=== PATIENT | male | born 1955 | race Caucasian/White ===

== ENCOUNTER 2017-04-27 11:48 | Emergency (ER) | payer BC ==
--- NOTE | ~2017-04-27 | CT4 ---
[facility] A Service of [facility] & [facility] RADIOLOGY TEXT RESULTS PATIENT: LIBBY BRYANT LOCATION: [facility] : 54 UNIT #: [id number] AGE: [address]: Shmuel Mitchell DO SEX: M ORDER DR: [id number] [facility] [address] [place], [place] [address] [id number] E MR#: [id number] Acc #: [id number] NAME: LIBBY BRYANT : 1955 SEX: M STUDY DATE/TIME: 04/27/2017 14:22 UNIT: [facility] ROOM: STUDY DESCRIPTION: CT Abd and Pelv Wo Cont Attending Physician: Shmuel Mitchell D.O. Ordering Physician: Shmuel Mitchell D.O. Primary Care Physician: Farshad Alvarez Jr., M.D. MEDICAL IMAGING REPORT This report is preliminary unless electronic signature is present EXAM CT abdomen and pelvis 04/27 INDICATIONS Elevated white blood cell count with difficulty urinating that started yesterday. TECHNIQUE Axial noncontrast images were obtained through the pelvis. Multiplanar reformats were obtained. No comparison. The CT exam was performed with one or more of the following radiation dose reduction techniques: automatic exposure control, adjustment of mA and/or kV according to patient size, and iterative reconstruction. FINDINGS Abdomen: Mild atelectasis or scarring noted in both lung bases. Gallbladder is normal. There is atherosclerotic disease, but there is no aortic aneurysm. No renal or ureteral stones are seen. There is no hydronephrosis. The unenhanced solid organs are within normal limits. No adenopathy or free fluid. The unopacified GI tract is normal. Pelvis: The appendix is surgically absent. The unopacified GI tract is otherwise normal. Urinary bladder is normal. There are no lower ureteral stones. There is a small fat-containing umbilical hernia. There is some mild fat stranding in the rectovesical space adjacent to the seminal vesicles. This could be due to prostatitis or even similar seminal vesiculitis. Correlate clinically. There is degenerative disease in the lumbar spine. IMPRESSION [facility] A Service of [facility] & [facility] RADIOLOGY TEXT RESULTS PATIENT: LIBBY BRYANT LOCATION: [facility] : 54 UNIT #: [id number] AGE: [address]: Shmuel Mitchell DO SEX: M ORDER DR: 1. No renal or ureteral stones. No hydronephrosis. 2. Appendectomy. Otherwise normal unopacified GI tract. 3. Fat stranding in the rectovesical space near the seminal vesicles. This could be due to seminal vesiculitis or prostatitis. Correlate clinically. The adjacent urinary bladder while not completely fully distended, appears grossly normal. Dictated by... Zeb Thompson Jr., M.D. THIS IS AN ELECTRONICALLY VERIFIED REPORT Zeb Thompson Jr., M.D. at 04/28/2017 4:40 PM BENY/dwayne TD: 04/27/2017 15:05 JOB #: [id number] MEDICAL IMAGING REPORT Page 1 of 1 COPY
[~2017-04-27 11:48] MED LIST: ALTACE PO; ASPIRIN EC81 M1 PO; ASPIRIN PO; B-121000 MC1 PO; CARVEDILOL12.5 MG PO; CERTAGEN PO; CLOPIDOGREL75 MG PO; COREG PO; FENOFIBRATE160 MG PO; FISH OIL 1,0001 CAP PO; FLAXSEED1000 MG PO; GLUCOSAMINE; LISINOPRIL-HCTZ1 T14 PO; LOPID600 MG PO; MULTI VITAMIN1 EACH PO; PLAVIX PO; PRILOSEC PO; VIGAMOX3 M1 OP; VYTORIN 10/40 M1 TAB PO; VYTORIN 10/40 T1 TAB PO; [UNRECOGNIZED DRUG - OTHER]
[2017-04-27 12:55] LABS: BASOPHIL# 0.1 X10e3 (0-0.3); BASOPHIL% 0.4 % (0-2.5); DIFF IND YES; EOSINOPHIL% 0.1 % (0.0-7.0); HEMATOCRIT 43.1 % (38.0-50.0); HEMOGLOBIN 14.4 gm/dL (13.0-16.0); LYMPHOCYTE# 0.8 X10e3 (1.0-3.5); LYMPHOCYTE% 4.7 % (17.0-45.0); MEAN CELL VOLUME 90.2 FL (83-96); MEAN CORPUSCULAR HEMOGLOBIN 30.2 PG (28-34); MEAN CORPUSCULAR HGB CONC 33.5 g/dL (30-36); MEAN PLATELET VOLUME 8.3 FL (6.5-11.5); MONOCYTE# 1.3 X10e3 (0-1.0); MONOCYTE% 7.8 % (3.0-12.0); NEUTROPHIL# 14.5 X10e3 (1.5-7.1); PLATELET COUNT 146 X10e3 (140-420); RED BLOOD COUNT 4.78 X10e (3.90-5.60); RED CELL DISTRIBUTION WIDTH 13.4 % (11.0-15.5); WHITE BLOOD COUNT 16.7 X10e3 (4.0-10.5)
[2017-04-27 13:05] LABS: URINE SOURCE CLEAN CATCH
[2017-04-27 13:10] LABS: ALBUMIN SERUM 4.5 g/dL (3.5-5.0); BILIRUBIN, DIRECT 0.2 mg/dL (0.0-0.2); BILIRUBIN,INDIRECT 1.1 mg/dL (0.0-0.9); BILIRUBIN,TOTAL 1.3 mg/dL (0.2-2.0); CALCIUM SERUM 9.8 mg/dL (8.4-10.2); GLOM FILT RATE Estimated 80.3 mL/min (>60); POTASSIUM 3.7 mmol/L (3.5-5.1); PROTEIN TOTAL SERUM 7.5 g/dL (6.0-8.3)
[2017-04-27 13:14] LABS: URINE APPEARANCE CLEAR; URINE BILIRUBIN NEG (NEG); URINE BLOOD NEG (NEG); URINE COLOR DK YELLOW; URINE GLUCOSE NEG (NEG); URINE KETONE NEG (NEG); URINE LEUKOCYTE ESTERASE 2+ (NEG); URINE NITRATE NEG (NEG); URINE PROTEIN 1+ (NEG); URINE SPECIFIC GRAVITY 1.025 (1.003-1.035)
[2017-04-27 13:14] LABS: PLATELET ESTIMATE NORMAL (NORMAL)
[2017-04-27 13:16] LABS: CULTURE INDICATED? YES; URINE SQUAMOUS EPITHELIAL CELL NONE SEEN /[HPF]; UWBCS1 AUWI 100-200 (0-5)
[2017-04-27 13:26] LABS: U HYALINE CASTS AUWI 0-2 /[LPF]; URINE BACTERIA AUWI 1+ (NEGATIVE); URINE MUCUS PRESENT
== END 2017-04-27 17:26 | disposition home or self-care (01) ==
LOC: CED 11:48
PROVIDERS: Emergency Medicine
DX: N41.9 Inflammatory disease of prostate, unspecified (principal); N39.0 Urinary tract infection, site not specified; E78.5 Hyperlipidemia, unspecified; K21.9 Gastro-esophageal reflux disease without esophagitis; Z90.49 Acquired absence of other specified parts of digestive tract; Z98.890 Other specified postprocedural states; Z88.5 Allergy status to narcotic agent; Z88.0 Allergy status to penicillin; Z88.8 Allergy status to other drugs, medicaments and biological substances
CPT/HCPCS: 36415; 74176; 80048; 80076; 81003; 83605; 83690; 85025; 87086; 99284; J0696

== ENCOUNTER 2017-06-12 21:27 | Observation (INO) | payer BC ==
[~2017-06-12] VITALS: Ht 198.1 cm; Wt 137.8 kg
--- NOTE | ~2017-06-12 | OR ---
Unit #: [id number] #: [id number] Patient: LIBBY BRYANT [id number] [address] [place], [place] [address] [id number] I MR#: [id number] NAME: LIBBY BRYANT ROOM: 57 Date of Procedure: 06/13/2017 Admission Date: 06/13/2017 Surgeon: Zhen Monroe M.D. : 1955 Attending Physician: Britney Bynum M.D. Primary Care Physician: Farshad Alvarez Jr., M.D. OPERATIVE REPORT PREOPERATIVE DIAGNOSES 1. Melena. 2. Anemia. POSTOPERATIVE DIAGNOSES 1. Melena. 2. Anemia. PROCEDURES PERFORMED 1. Esophagogastroduodenoscopy. 2. Biopsy of antrum for Helicobacter pylori testing. ANESTHESIA Monitored anesthesia care. FINDINGS The patient was found to have a small hiatal hernia, severe distal gastritis. No blood or active bleeding was present. SPECIMENS Sent to pathology. COMPLICATIONS None apparent. CONDITION The patient tolerated the procedure well. INDICATIONS FOR PROCEDURE The patient is a 62-year-old white male, who presents at this time for evaluation of melena and anemia. DESCRIPTION OF PROCEDURE After obtaining informed consent, the patient was brought to the endoscopy suite and after adequate monitored anesthesia care had the endoscope placed through the mouth and the upper esophagus under direct vision. It was advanced to the second portion of the duodenum without difficulty with lumen always in view. The second and third portion of the duodenum were normal. There was no blood present. The duodenal bulb was normal. There was no blood present. The pylorus opened normally. In the distal stomach, there was severe ulcerative gastritis present. There was no Unit #: [id number] #: [id number] Patient: LIBBY BRYANT active bleeding. There was no blood present within the stomach. A biopsy was obtained for Helicobacter pylori testing. On retroflexion back to the GE junction, the patient was found to have a small hiatal hernia. No other abnormalities were found in the proximal third, middle third, or incisura. On pulling back above the GE junction, there was no stenosis, stricture, or neoplasm seen. There was no significant esophagitis. The remaining portion of the esophagus was within normal limits. Laryngeal structures were grossly normal as viewed from above. The patient went from the endoscopy suite to recovery area in stable condition. RECOMMENDATIONS Protonix on a daily basis. Avoid alcohol, aspirin, nonsteroidal anti-inflammatory medications. Follow up in the office in 7-10 days. Mylanta 30 mL p.o. between meals and at bedtime for one week. Dictated by... Millie Hendrix/venita TD: 06/13/2017 10:38 JOB #: [id number] CC: [facility] OPERATIVE REPORT Page 1 of 1 X Zhen Monroe MD X PROCEDURE OPERATIVE NOTE
--- NOTE | ~2017-06-12 | EKG ---
PATIENT: LIBBY BRYANT UNIT #: [id number] Ventricular Rate: 97 BPM Atrial Rate: 97 BPM P-R Interval: 174 ms QRS Duration: 100 ms Q-T Interval: 354 ms QTC Calculation(Bezet): 449 ms P Ola: 75 degrees Calculated T Ola: 78 degrees Diagnosis Line: Normal sinus rhythm Diagnosis Line: Nonspecific T wave abnormality Diagnosis Line: Abnormal ECG Diagnosis Line: No previous ECGs available Diagnosis Line: Confirmed by DEVON DARNELL MD ([id number]) on Diagnosis Line: 06/13/2017 12:32:30 PM INTERPRETING MD: CARIE GARCES
--- NOTE | ~2017-06-12 | DS ---
Unit #: [id number] #: [id number] Patient: LIBBY GUADALUPE [id number] [address] [place], [place] [address] [id number] I MR#: [id number] NAME: LIBBY GUADALUPE ROOM: 571 Age: 61 Sex: M Admission Date: 06/13/2017 : 1955 Discharge Date: 06/13/2017 Attending Physician: Britney Bynum M.D. Primary Care Physician: Farshad Alvarez Jr., M.D. DISCHARGE SUMMARY PRINCIPAL DIAGNOSES 1. Symptomatic gastritis with melena. 2. Gastroesophageal reflux disease. 3. Coronary artery disease, non-occlusive, status post stenting. 4. Hyperlipidemia. 5. Hypertension. 6. Obesity. CONSULTANTS Dr. Monroe - General Surgery. PROCEDURES 1. EGD on June 13, 2017, with a small hiatal hernia, severe distal gastritis noted. No evidence of blood. No active bleeding. 2. Chest x-ray on June 12, 2017, with no acute findings. Osteophyte formation in the mid thoracic spine noted. CLINICAL HISTORY/HOSPITAL COURSE Mr. Guadalupe is a very nice 61-year-old male who presents to the emergency department with postprandial epigastric pain of several weeks duration. Please refer to H and P for further details. The patient was recently started on a course of ciprofloxacin as an outpatient for prostatitis and stopped his Prilosec about three weeks ago. Upon completion of his Cipro, he forgot to re-initiate his Prilosec. Shortly afterwards, he began developing symptoms. Last evening, he had associated shortness of air and substernal chest pain and, thus, presented to the emergency department. He was also having associated diaphoresis. Upon presentation, vital signs were all stable with the exception of some mild tachycardia with a pulse rate of 102. Examination, per our records, indicated some epigastric tenderness. Workup revealed negative troponins and EKG was unremarkable. Hemoglobin is stable at 11.8. The patient was placed in observation for evaluation. LSA was consulted and patient underwent EGD this morning revealing gastritis. Patient has been placed on Protonix and symptoms have completely resolved. Telemetry has revealed only normal sinus rhythm and again troponins have remained negative. We will discharge him home on PPI therapy as instructed. PAST SURGICAL HISTORY Cardiac stenting. ALLERGIES Trilipix, penicillin and codeine. Unit #: [id number] #: [id number] Patient: LIBBY GUADALUPE HOME MEDICATIONS 1. Coreg 12.5 mg b.i.d. 2. Zestoretic 20/12.5, one b.i.d. 3. Triglide 160 mg daily. 4. Plavix 75 mg daily. 5. Vytorin 10/40, one daily. 6. Aspirin 81 mg daily. 7. Daily multivitamin. 8. Omeprazole 20 mg four times weekly. 9. Xanax 0.25 mg daily p.r.n. for anxiety. 10. Enfolast tablet, one daily. FAMILY HISTORY Reportedly negative. SOCIAL HISTORY The patient does drink alcohol socially. No tobacco use. REVIEW OF SYSTEMS Otherwise negative. PHYSICAL EXAMINATION VITAL SIGNS: Temperature 98.7, blood pressure 102/67, pulse rate 85, respiratory rate 18. Oxygen saturation 100% on room air. GENERAL: The patient is awake, alert and oriented x3. Pleasant. HEENT: Pupils equally round, reactive to light bilaterally. Anicteric sclerae. No conjunctival pallor. Oropharynx with moist mucous membranes. No erythema or exudate. NECK: Supple. No lymphadenopathy, no thyromegaly, no JVD. HEART: Regular rate and rhythm without murmur, rub or gallop. LUNGS: Clear to auscultation bilaterally without wheezes, rhonchi or crackles. ABDOMEN: Obese, soft, nontender, nondistended. Positive bowel sounds. No appreciable hepatosplenomegaly. EXTREMITIES: No cyanosis, clubbing, or edema. Pedal pulses 2/4. SKIN: Warm, moist, without rash. NEUROLOGIC: Cranial nerves II-XII intact. Sensation, strength and deep tendon reflexes are grossly normal. No significant musculoskeletal abnormalities. DIAGNOSTIC STUDIES LABORATORY: Labs today reveal a hemoglobin of 10.0, down from 11.8 yesterday and again troponins remained negative. INR was normal at 1.0. Glucose mildly elevated at 137. Again, patient will be discharged home later today following EGD. DISCHARGE MEDICATIONS Include: 1. Zestoretic 20/12.5, one b.i.d. 2. Vytorin 10/40, one daily. 3. Triglide 160 mg daily. 4. Xanax 0.25 mg p.o. daily p.r.n. for anxiety. 5. Coreg 12.5 mg p.o. b.i.d. 6. Daily multivitamin. 7. Aspirin 81 mg daily. 8. Plavix 75 mg daily, to be reinitiated on 06/15/17. Unit #: [id number] #: [id number] Patient: LIBBY GUADALUPE 9. Protonix 40 mg daily. 10. Enfolast tablet, one daily. Dictated by... Britney Bynum M.D. Lolita/garth TD: 06/13/2017 11:17 JOB #: [id number] DISCHARGE SUMMARY Page 1 of 1 X Britney Bynum MD X DISCHARGE SUMMARY
--- NOTE | ~2017-06-12 | CR72 ---
[facility] A Service of [facility] & [facility] RADIOLOGY TEXT RESULTS PATIENT: LIBBY BRYANT LOCATION: [facility] 571- : 54 UNIT #: [id number] AGE: [address]: Britney Bynum MD SEX: M ORDER DR: [id number] [facility] [address] [place], [place] [address] [id number] I MR#: [id number] #: [id number] NAME: LIBBY BRYANT : 1955 SEX: M STUDY DATE/TIME: 06/12/2017 22:23 UNIT: [facility] ROOM: [facility] STUDY DESCRIPTION: CR Chest Single View Portable Attending Physician: Britney Bynum M.D. Ordering Physician: Libby Baires M.D. Primary Care Physician: Farshad Alvarez Jr., M.D. MEDICAL IMAGING REPORT This report is preliminary unless electronic signature is present EXAM AP portable chest 06/12/2017 HISTORY 61-year-old male shortness of breath and chest pain today. COMPARISON AP portable chest 06/07/2008. FINDINGS No acute airspace disease. Benign calcified granuloma in the right midlung. Heart size upper limits normal. Pulmonary vascular distribution normal. No pleural effusion or pneumothorax. Marginal osteophyte formation in the mid thoracic spine. Degenerative changes of the acromioclavicular joints. IMPRESSION No acute cardiopulmonary findings. Dictated by... Daly Rice M.D. THIS IS AN ELECTRONICALLY VERIFIED REPORT Daly Rice M.D. at 06/13/2017 9:59 PM LLLolita/tara TD: 06/13/2017 09:07 JOB #: [id number] MEDICAL IMAGING REPORT Page 1 of 1 COPY
--- NOTE | ~2017-06-12 | CO ---
Unit #: [id number] #: [id number] Patient: LIBBY GUADALUPE [id number] [address] [place], [place] [address] [id number] I MR#: [id number] NAME: LIBBY GUADALUPE ROOM: 571 Age: 61 Sex: M Admission Date: 06/13/2017 : 1955 Attending Physician: Britney Bynum M.D. Primary Care Physician: Farshad Alvarez Jr., M.D. Consultation Date: 06/13/2017 CONSULTATION REPORT REASON FOR CONSULTATION 1. Melena. 2. Anemia. Thank you very much for asking us to see Mr. Guadalupe. HISTORY OF PRESENT ILLNESS He is a 61-year-old white male, whose past medical history is remarkable for cardiac stents x3 in the past, appendectomy, hernia repair, vasectomy, and who had a colonoscopy in September of 2016 with the finding of rare scattered shallow hicks-diverticular disease and a small 4 to 5 mm polyp that was benign. He is feeling and doing well until yesterday morning. He developed a feeling of lightheadedness and then had two bowel movements that were black and tarry. He has had no further bowel movements. He has had no nausea or vomiting. He states that he takes aspirin or nonsteroidal anti-inflammatory medications fairly regularly for knee pain. He drinks alcohol on a fairly regular basis in a uhrp-xk-delxylky amount. He recently stopped his omeprazole that he was taking regularly (20 mg tablets three times a week) as he was told it would interfere with the antibiotics, Cipro that he was taking for recent episode of prostatitis. He presents at this time for further evaluation and treatment. He was admitted to the emergency room. He was found to have a hemoglobin of 11.8. It subsequently dropped to 10.0. He had hemoglobin of 14.4 on 04/27. He presents at this time for further evaluation and treatment. ALLERGIES Penicillin, codeine, and Trilipix. PAST SURGICAL HISTORY 1. Angioplasty and stent x3, most recent in 2007. 2. Appendectomy. 3. Tympanoplasty. 4. Double hernia repair. 5. Vasectomy. 6. Colonoscopy. PAST MEDICAL HISTORY High blood pressure and coronary artery disease. SOCIAL HISTORY Positive alcohol use. No tobacco use. IMMUNIZATION STATUS Unknown. Unit #: [id number] #: [id number] Patient: LIBBY GUADALUPE FAMILY HISTORY Noncontributory. REVIEW OF SYSTEMS Negative except for above. PHYSICAL EXAMINATION GENERAL: Well-developed, well-nourished white male, in no apparent distress. VITAL SIGNS: Temperature 97.8, pulse 117, blood pressure is 128/77, and respirations 18. IMPRESSION A 61-year-old white male with melena and decreased hemoglobin. We have recommended upper endoscopy for further evaluation and treatment. All the risks and benefits have been fully explained to the patient in detail including the risks of bleeding, perforation, emergency surgery, interventional radiology procedure, transfer, , and other risks. He understands completely and requests to proceed. He is currently on Protonix intravenously b.i.d. Dictated by... Millie Hendrix/venita TD: 06/13/2017 07:51 JOB #: [id number] CC: [facility] CONSULTATION REPORT Page 1 of 1 X Zhen Monroe MD X CONSULTATION REPORT
[2017-06-12 22:21] LABS: BASOPHIL# 0.1 X10e3 (0-0.3); BASOPHIL% 0.6 % (0-2.5); EOSINOPHIL# 0.1 X10e3 (0-0.7); EOSINOPHIL% 1.5 % (0.0-7.0); HEMOGLOBIN 11.8 gm/dL (13.0-16.0); LYMPHOCYTE# 2.7 X10e3 (1.0-3.5); LYMPHOCYTE% 32.9 % (17.0-45.0); MEAN CELL VOLUME 89.1 FL (83-96); MEAN CORPUSCULAR HEMOGLOBIN 30.9 PG (28-34); MEAN CORPUSCULAR HGB CONC 34.7 g/dL (30-36); MEAN PLATELET VOLUME 7.8 FL (6.5-11.5); MONOCYTE# 0.8 X10e3 (0-1.0); MONOCYTE% 10.3 % (3.0-12.0); NEUTROPHIL# 4.4 X10e3 (1.5-7.1); NEUTROPHIL% 54.7 % (40-75); PLATELET COUNT 198 X10e3 (140-420); RED BLOOD COUNT 3.81 X10e (3.90-5.60); RED CELL DISTRIBUTION WIDTH 13.7 % (11.0-15.5); WHITE BLOOD COUNT 8.1 X10e3 (4.0-10.5)
[2017-06-12 22:23] LABS: DIFF IND NO
[2017-06-12 22:28] LABS: POC - CKMB 1.5 ng/mL (0.0-7.9); POC - TROPONIN <0.05 ng/mL (<=0.05)
[2017-06-12 22:39] LABS: PARTIAL THROMBOPLASTIN TIME 26.2 SECONDS (23.5-31.3); PROTHROMBIN TIME (PATIENT) 11.3 SECONDS (10.0-11.7)
[2017-06-12 22:55] LABS: ALBUMIN SERUM 4.1 g/dL (3.5-5.0); ALKALINE PHOSPHATASE 58 U/L (32-92); ALT (SGPT) 24 U/L (10-40); AST (SGOT) 24 U/L (10-42); BILIRUBIN, DIRECT 0.1 mg/dL (0.0-0.2); BILIRUBIN,INDIRECT 0.4 mg/dL (0.0-0.9); BILIRUBIN,TOTAL 0.5 mg/dL (0.2-2.0); BLOOD UREA NITROGEN 55 mg/dL (9-23); CALCIUM SERUM 9.6 mg/dL (8.4-10.2); CARBON DIOXIDE 23 mmol/L (22-31); CHLORIDE 108 mmol/L (100-111); CREATININE SERUM 1.1 mg/dL (0.6-1.4); GLOM FILT RATE Estimated 71.6 mL/min (>60); GLUCOSE FASTING 137 mg/dL (70-110); LIPASE 32 U/L (22-51); POTASSIUM 3.9 mmol/L (3.5-5.1); PROTEIN TOTAL SERUM 6.5 g/dL (6.0-8.3); SODIUM 138 mmol/L (135-145)
[2017-06-12 22:56] LABS: ALCOHOL BLOOD <5 mg/dL (0)
[2017-06-13] MEDS ORDERED: COREG12.5 M1 PO (00:01)
[2017-06-13] MEDS ORDERED: ZESTORETIC 20-1 EAC1 PO (00:02)
[2017-06-13] MEDS ORDERED: TRIGLIDE160 M1 PO (00:02)
[2017-06-13] MEDS ORDERED: CLOPIDOGREL BIS75 MG PO (00:02)
[2017-06-13] MEDS ORDERED: VYTORIN 10-401 EACH PO (00:03)
[2017-06-13] MEDS ORDERED: METAFOLBIC TAB1 EACH PO (00:04)
[2017-06-13] MEDS ORDERED: ASPIRIN81 M2 PO (00:04)
[2017-06-13] MEDS ORDERED: MULTI VITAMIN1 EACH PO (00:04)
[2017-06-13] MEDS ORDERED: OMEPRAZOLE20 M1 PO (00:05)
[2017-06-13] MEDS ORDERED: XANAX0.5 M1 PO (00:06)
[2017-06-13] MEDS ORDERED: ENFOLAST TABLE1 EACH PO (00:09)
[2017-06-13 05:57] LABS: BASOPHIL% 0.6 % (0-2.5); EOSINOPHIL% 0.6 % (0.0-7.0); HEMATOCRIT 29.1 % (38.0-50.0); LYMPHOCYTE# 2.2 X10e3 (1.0-3.5); LYMPHOCYTE% 30.7 % (17.0-45.0); MEAN CELL VOLUME 89.9 FL (83-96); MEAN CORPUSCULAR HGB CONC 34.4 g/dL (30-36); MEAN PLATELET VOLUME 8.3 FL (6.5-11.5); MONOCYTE# 0.6 X10e3 (0-1.0); MONOCYTE% 8.2 % (3.0-12.0); NEUTROPHIL# 4.4 X10e3 (1.5-7.1); NEUTROPHIL% 59.9 % (40-75); PLATELET COUNT 176 X10e3 (140-420); RED BLOOD COUNT 3.24 X10e (3.90-5.60); RED CELL DISTRIBUTION WIDTH 13.7 % (11.0-15.5); WHITE BLOOD COUNT 7.3 X10e3 (4.0-10.5)
[2017-06-13 06:00] LABS: DIFF IND NO
[2017-06-13 06:48] LABS: BUN/CREATININE RATIO 55.45; CALCIUM SERUM 9.1 mg/dL (8.4-10.2); CREATININE SERUM 1.1 mg/dL (0.6-1.4); GLOM FILT RATE Estimated 71.6 mL/min (>60); POTASSIUM 4.6 mmol/L (3.5-5.1)
[2017-06-13] MEDS ORDERED: OMEPRAZOLE40 M1 PO (12:06)
[2017-06-13] MEDS ORDERED: MYLANTA400 MG PO (12:10)
== END 2017-06-13 13:00 | disposition home or self-care (01) | DRG 392 ==
LOC: CED 21:27 → CEDOF 06-13 00:20 → CED 06-13 00:41 → CEDOF 06-13 00:41 → C5C 06-13 00:41 → CEDOF 06-13 01:26 → C5C 06-13 01:26
PROVIDERS: Emergency Medicine
DX: K29.70 Gastritis, unspecified, without bleeding (principal); K44.9 Diaphragmatic hernia without obstruction or gangrene; K92.1 Melena; K21.9 Gastro-esophageal reflux disease without esophagitis; D64.9 Anemia, unspecified; I25.10 Atherosclerotic heart disease of native coronary artery without angina pectoris; I10 Essential (primary) hypertension; E66.9 Obesity, unspecified; Z88.0 Allergy status to penicillin; Z88.5 Allergy status to narcotic agent; Z88.8 Allergy status to other drugs, medicaments and biological substances; Z79.02 Long term (current) use of antithrombotics/antiplatelets; Z79.82 Long term (current) use of aspirin; Z79.899 Other long term (current) drug therapy; Z95.5 Presence of coronary angioplasty implant and graft; Z90.49 Acquired absence of other specified parts of digestive tract; Z98.52 Vasectomy status
CPT/HCPCS: 71010; 80048; 80076; 82553; 83690; 84484; 85025; 85610; 85730; 87077; 93005; 96374; 96375; 99285; C9113; G0378; G0480; J2405